=== PATIENT | male | born 2000 | race Two or more races ===

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

== ENCOUNTER 2020-04-23 07:50 | Emergency (ER) | payer OTHER, MEDICAID ==
[~2020-04-23] VITALS: Ht 167.6 cm; Wt 61.0 kg
[2020-04-23] MEDS ORDERED: KETOROLAC 30MG/ML VIAL IV STA (09:27)
[2020-04-23 09:54] LABS: HEMATOCRIT. 47.1 % (42.0-52.0); HEMOGLOBIN. 15.6 g/dL (14.0-18.0); MEAN CORPUSCULAR HEMOGLOBIN 31.8 pg (28.0-32.0); MEAN CORPUSCULAR VOLUME 96.3 fL (80.0-94.0); MEAN PLATELET VOLUME 9.1 fl (7.4-10.4); PLATELET 158 x1000/uL (130-400); RED BLOOD CELL COUNT 4.89 mill/uL (4.7-6.1); RED CELL DISTRIBUTION WIDTH 13.6 % (11.6-14.6)
[2020-04-23 09:56] LABS: CHLORIDE 108 mEq/L (98-107)
[2020-04-23 10:40] LABS: PLATELET ESTIMATE NORMAL
[2020-04-23 10:42] VITALS: BP 120/66
[2020-04-23 11:07] LABS: CLARITY URINE CLOUDY (CLEAR); COLOR URINE YELLOW (YELLOW); KETONES URINE NEGATIVE (NEGATIVE); LEUKOCYTE ESTERASE URINE 1+ (NEGATIVE); NITRITE URINE POSITIVE (NEGATIVE); OCCULT BLOOD URINE NEGATIVE (NEGATIVE); PH URINE >=9.0 (4.5-8.0); PROTEIN URINE NEGATIVE (NEGATIVE); SPECIFIC GRAVITY URINE 1.014 (1.005-1.030); UROBILINOGEN URINE 0.2 E.U./dL (0.2-1.0)
== END 2020-04-23 10:43 | disposition left against medical advice (07) ==
LOC: ER 08:35
DX: N39.0 Urinary tract infection, site not specified (principal)
CPT/HCPCS: 36415; 80053; 81003; 85025; 93005; 96374; 99284; J1885